=== PATIENT | female | born 1940 | race Caucasian/White ===

== ENCOUNTER 2016-08-29 11:54 | Outpatient (CLI) | payer OTHER | END 2016-08-30 07:20 | disposition home or self-care (01) | LOC: SRD 11:54 | PROVIDERS: ATTEND Family Medicine | DX: R05 Cough (principal); M47.899 Other spondylosis, site unspecified | CPT/HCPCS: 71020-TC ==

== ENCOUNTER 2018-10-08 08:15 | Outpatient (CLI) | payer OTHER, BC ==
[2018-10-08 09:20] LABS: BASOPHILS % (AUTO) 0.8 % (0.0-2.0); EOSINOPHILS # (AUTO) 0.2 K/uL (0.0-0.4); EOSINOPHILS % (AUTO) 4.7 % (0.0-4.0); HEMATOCRIT 47.2 % (36-48); HEMOGLOBIN 15.8 g/dL (12.0-16.0); LYMPHOCYTES # (AUTO) 1.4 K/uL (1.0-5.5); LYMPHOCYTES % (AUTO) 26.5 % (20.5-51.5); MEAN CORPUSCULAR HEMOGLOBIN 29 pg (27-31); MEAN CORPUSCULAR HGB CONC 34 % (32-36); MEAN CORPUSCULAR VOLUME 87 fL (79.0-98.0); MONOCYTES # (AUTO) 0.5 K/uL (0.0-1.0); MONOCYTES % (AUTO) 8.8 % (1.7-9.3); NEUTROPHILS # (AUTO) 3.1 K/uL (1.8-7.7); NEUTROPHILS % (AUTO) 59.2 % (40.0-70.0); PLATELET COUNT (AUTO) 273 K/uL (130-430); RED BLOOD CELL COUNT(AUTO) 5.43 MIL/uL (4.2-6.2); RED CELL DISTRIBUTION WIDTH 14.9 % (9.0-15.0); WHITE BLOOD COUNT (AUTO) 5.3 K/uL (4.8-10.8)
[2018-10-08 09:40] LABS: ALANINE AMINOTRANSFERASE 22 U/L (12-78); ALBUMIN 3.7 g/dL (3.4-4.8); ANION GAP 7 (5-15); ASPARTATE AMINOTRANSFERASE 14 U/L (10-37); CALCIUM 9.3 mg/dL (8.4-11.0); CHLORIDE 105 mmol/L (98-107); GLUCOSE 113 mg/dL (70-99); POTASSIUM 4.4 mmol/L (3.5-5.1); SODIUM SERUM 138 mmol/L (136-145); TOTAL BILIRUBIN 0.8 mg/dL (0.0-1.0); UREA NITROGEN, BLOOD 20 mg/dL (8-21)
== END 2018-10-08 21:01 | disposition home or self-care (01) ==
LOC: SLB 08:15
DX: Z01.818 Encounter for other preprocedural examination (principal); M79.645 Pain in left finger(s); R05 Cough
CPT/HCPCS: 36415; 71046-TC; 80053; 85025; 93005

== ENCOUNTER 2018-12-14 08:30 | Outpatient (CLI) | payer BC | END 2018-12-14 21:01 | disposition home or self-care (01) | LOC: SUS 08:30 | PROVIDERS: ATTEND Family Medicine | DX: Z12.31 Encounter for screening mammogram for malignant neoplasm of breast (principal); I82.401 Acute embolism and thrombosis of unspecified deep veins of right lower extremity | CPT/HCPCS: 77067; 93971 ==